=== PATIENT | female | born 1955 | race Caucasian/White ===

== ENCOUNTER 2023-06-11 17:20 | Emergency (ER) | payer OTHER, MEDICARE ==
[~2023-06-11] VITALS: Ht 160 cm; Wt 54.4 kg
[2023-06-11 17:28] VITALS: BP_SYST 127; PULSE 84; RESP 18; TEMP 97.1; O2SAT 98
[2023-06-11] MEDS ORDERED: NACL 0.9% 1,000 ML IV ONE (18:45)
[2023-06-11 19:32] LABS: BASOPHILS # (AUTO) 0.1 K/uL (0.0-0.2); BASOPHILS % (AUTO) 0.7 % (0.0-2.0); EOSINOPHILS # (AUTO) 0.1 K/uL (0.0-0.4); EOSINOPHILS % (AUTO) 0.6 % (0.0-4.0); HEMATOCRIT 35.3 % (36-48); HEMOGLOBIN 11.9 g/dL (12.0-16.0); LYMPHOCYTES # (AUTO) 2.6 K/uL (1.0-5.5); LYMPHOCYTES % (AUTO) 27.9 % (20.5-51.5); MEAN CORPUSCULAR HEMOGLOBIN 28 pg (27-31); MEAN CORPUSCULAR HGB CONC 34 % (32-36); MEAN CORPUSCULAR VOLUME 83 fL (79.0-98.0); MONOCYTES # (AUTO) 0.9 K/uL (0.0-1.0); MONOCYTES % (AUTO) 9.3 % (1.7-9.3); NEUTROPHILS # (AUTO) 5.7 K/uL (1.8-7.7); NEUTROPHILS % (AUTO) 61.5 % (40.0-70.0); PLATELET COUNT (AUTO) 272 K/uL (130-430); RED BLOOD CELL COUNT(AUTO) 4.26 MIL/uL (4.2-6.2); RED CELL DISTRIBUTION WIDTH 12.7 % (9.0-15.0); WHITE BLOOD COUNT (AUTO) 9.4 K/uL (4.8-10.8)
[2023-06-11 19:33] LABS: ERYTHROCYTE SEDIMENTATION RATE 29 MM/HR (0-20)
[2023-06-11 19:47] LABS: CALCIUM 8.7 mg/dL (8.4-11.0); CREATININE 0.8 mg/dL (0.55-1.30); POTASSIUM 3.7 mmol/L (3.5-5.1)
[2023-06-11 20:20] LABS: ALBUMIN 3.1 g/dL (3.4-4.8); TOTAL BILIRUBIN 0.3 mg/dL (0.0-1.0); TOTAL PROTEIN, SERUM 6.6 g/dL (6.4-8.3); URIC ACID 3.8 mg/dL (2.4-7.0)
[2023-06-11 20:51] LABS: BILIRUBIN,URINE NEGATIVE (NEGATIVE); BLOOD, URINE NEGATIVE (NEGATIVE); CLARITY/URINE CLEAR (CLEAR); COLOR,URINE YELLOW (YELLOW); GLUCOSE,URINE NEGATIVE (NEGATIVE); KETONES,URINE NEGATIVE (NEGATIVE); LEUKOCYTE ESTERASE ,URINE NEGATIVE (NEGATIVE); NITRITE, URINE NEGATIVE (NEGATIVE); PH,URINE 5.5 (5.0-8.0); PROTEIN URINE NEGATIVE (NEGATIVE); UROBILINOGEN,URINE 0.2 (0.2-1.0)
[2023-06-11] MEDS ORDERED: KETOROLAC TROMETHAMINE 30 MG VIAL IVP ONE (21:30)
[2023-06-11] MEDS ORDERED: CELE100C PO (21:34)
[2023-06-11] MEDS ORDERED: KETOROLAC TROMETHAMINE 30 MG VIAL ONE (21:44)
[2023-06-11 22:08] VITALS: BP_SYST 151; PULSE 68; RESP 18; TEMP 98.3; O2SAT 99
== END 2023-06-11 22:08 | disposition home or self-care (01) ==
LOC: SED 17:20
DX: R79.82 Elevated C-reactive protein (CRP) (principal); M79.10 Myalgia, unspecified site; M25.562 Pain in left knee; Z79.899 Other long term (current) drug therapy
CPT/HCPCS: 99283; 96360; 80053; 84550; 85025; 85651; 87040; 36415; 83605; 81003; 82397; J1885; J7030